=== PATIENT | female | born 1945 | race Native Hawaiian/Other Pacific Islander ===

== ENCOUNTER 2016-07-24 07:58 | Outpatient (CLI) | payer OTHER | END 2016-07-24 08:58 | disposition home or self-care (01) | LOC: LABW 07:58 | DX: H02.401 Unspecified ptosis of right eyelid (principal) | CPT/HCPCS: 36415; 83519; 86255; 86256 ==

== ENCOUNTER 2017-05-14 09:27 | Outpatient (CLI) | payer OTHER, MEDICARE ==
[2017-05-14 10:05] LABS: PLATELET COUNT 178 K/uL (152-353)
[2017-05-14 10:28] LABS: POTASSIUM 3.8 mmol/L (3.6-5.2); SODIUM 140 mmol/L (136-145)
== END 2017-05-14 10:30 | disposition home or self-care (01) ==
LOC: LABW 09:27
PROVIDERS: Internal Medicine Nephrology
DX: I10 Essential (primary) hypertension (principal); E78.4 Other hyperlipidemia; R53.83 Other fatigue
CPT/HCPCS: 36415; 80053; 80061; 84439; 84443; 84480; 85027

== ENCOUNTER 2017-12-31 09:17 | Outpatient (CLI) | payer OTHER, MEDICARE | END 2017-12-31 19:25 | disposition home or self-care (01) | LOC: US 09:17 | DX: R10.13 Epigastric pain (principal); R10.11 Right upper quadrant pain ==

== ENCOUNTER 2018-01-01 15:35 | Outpatient (CLI) | payer OTHER, MEDICARE ==
[2018-01-01 15:57] LABS: PLATELET COUNT 182 K/uL (152-353)
[2018-01-01 16:11] LABS: POTASSIUM 3.4 mmol/L (3.6-5.2)
== END 2018-01-01 22:20 | disposition home or self-care (01) ==
LOC: LABW 15:35
PROVIDERS: Internal Medicine Gastroenterology
DX: R10.84 Generalized abdominal pain (principal)
CPT/HCPCS: 36415; 80053; 82150; 83690; 85027

== ENCOUNTER 2018-05-16 07:32 | Outpatient (CLI) | payer OTHER, MEDICARE ==
[2018-05-16 08:19] LABS: POTASSIUM 3.8 mmol/L (3.6-5.2)
[2018-05-16 08:21] LABS: PLATELET COUNT 173 K/uL (152-353)
== END 2018-05-16 22:51 | disposition home or self-care (01) ==
LOC: LABW 07:32
PROVIDERS: Internal Medicine Nephrology
DX: I10 Essential (primary) hypertension (principal); E78.5 Hyperlipidemia, unspecified; R53.83 Other fatigue; N39.0 Urinary tract infection, site not specified
CPT/HCPCS: 36415; 80053; 80061; 81000; 84439; 84443; 84480; 85027; 87088

== ENCOUNTER 2019-07-13 10:17 | Outpatient (CLI) | payer OTHER, MEDICARE ==
[2019-07-13 10:36] LABS: PLATELET COUNT 179 K/uL (152-353)
[2019-07-13 10:52] LABS: POTASSIUM 3.9 mmol/L (3.6-5.2)
== END 2019-07-13 19:12 | disposition home or self-care (01) ==
LOC: LABW 10:17
PROVIDERS: Internal Medicine Gastroenterology
DX: Z79.899 Other long term (current) drug therapy (principal); R10.9 Unspecified abdominal pain
CPT/HCPCS: 36415; 80053; 80061; 82150; 83690; 84443; 85027

== ENCOUNTER 2020-04-13 09:02 | Outpatient (CLI) | payer OTHER, MEDICARE ==
[2020-04-13 09:56] LABS: PLATELET COUNT 170 K/uL (152-353)
[2020-04-13 10:15] LABS: POTASSIUM 3.7 mmol/L (3.6-5.2)
== END 2020-04-13 21:44 | disposition home or self-care (01) ==
LOC: LABW 09:02
PROVIDERS: Internal Medicine Rheumatology
DX: M35.00 Sjogren syndrome, unspecified (principal)
CPT/HCPCS: 36415; 80053; 81000; 82550; 82570; 84155; 85027; 85651; 86140

== ENCOUNTER 2020-08-24 08:38 | Outpatient (CLI) | payer OTHER, MEDICARE ==
[2020-08-24 08:58] LABS: PLATELET COUNT 149 K/uL (152-353)
[2020-08-24 09:21] LABS: POTASSIUM 3.7 mmol/L (3.6-5.2)
== END 2020-08-24 22:06 | disposition home or self-care (01) ==
LOC: LABW 08:38
PROVIDERS: ATTEND Internal Medicine Nephrology
DX: E78.49 Other hyperlipidemia (principal); H66.92 Otitis media, unspecified, left ear; I10 Essential (primary) hypertension; J30.89 Other allergic rhinitis; K21.9 Gastro-esophageal reflux disease without esophagitis; L71.0 Perioral dermatitis; Z79.890 Hormone replacement therapy; Z28.21 Immunization not carried out because of patient refusal; E53.8 Deficiency of other specified B group vitamins; E55.9 Vitamin D deficiency, unspecified; Z79.899 Other long term (current) drug therapy
CPT/HCPCS: 36415; 80053; 80061; 81000; 82306; 82570; 82607; 82746; 83970; 84100; 84155; 84436; 84443; 84479; 85027

== ENCOUNTER 2021-08-24 08:51 | Outpatient (CLI) | payer OTHER, MEDICARE ==
[2021-08-24 09:31] LABS: PLATELET COUNT 146 K/uL (152-353)
[2021-08-24 09:38] LABS: POTASSIUM 3.8 mmol/L (3.6-5.2)
== END 2021-08-24 20:39 | disposition home or self-care (01) ==
LOC: LABW 08:51
PROVIDERS: ATTEND Internal Medicine Nephrology
DX: E78.49 Other hyperlipidemia (principal); H66.92 Otitis media, unspecified, left ear; J30.89 Other allergic rhinitis; K21.9 Gastro-esophageal reflux disease without esophagitis; L71.0 Perioral dermatitis; Z79.899 Other long term (current) drug therapy; I10 Essential (primary) hypertension; M19.90 Unspecified osteoarthritis, unspecified site; M81.0 Age-related osteoporosis without current pathological fracture; Z28.21 Immunization not carried out because of patient refusal
CPT/HCPCS: 36415; 80053; 80061; 81000; 82306; 82570; 83970; 84100; 84155; 85027

== ENCOUNTER 2023-02-22 08:34 | Outpatient (CLI) | payer OTHER, MEDICARE ==
[2023-02-22 09:07] LABS: PLATELET COUNT 159 K/uL (152-353)
== END 2023-02-22 19:11 | disposition home or self-care (01) ==
LOC: LABW 08:34
PROVIDERS: ATTEND Physician Assistant Medical
DX: E78.49 Other hyperlipidemia (principal); I25.10 Atherosclerotic heart disease of native coronary artery without angina pectoris; I10 Essential (primary) hypertension; Z79.899 Other long term (current) drug therapy; E55.9 Vitamin D deficiency, unspecified; D51.8 Other vitamin B12 deficiency anemias; M81.8 Other osteoporosis without current pathological fracture
CPT/HCPCS: 36415; 80053; 80061; 81002; 82248; 82306; 82310; 82607; 83036; 84439; 84443; 84479; 85027